=== PATIENT | male | born 1955 | race African-American/Black ===

== ENCOUNTER 2016-07-21 08:51 | Day surgery (SDC) | payer OTHER ==
[~2016-07-21] VITALS: Ht 188 cm; Wt 129.0 kg
[~2016-07-21 08:51] MED LIST: BACITRACIN 50,000 UNIT ONE; BUPIVACAINE/PF-EPI 0.5% 1:200K ONE; HEPARIN 1,000 UNITS/ML, 10ML ONE; HEPARIN 5,000 UNITS/ML, 1ML ONE; PAPAVERINE 30 MG/ML, 2ML ONE; PROTAMINE SULFATE 10 MG/ML, 5ML ONE; THROMBIN 20,000 UNIT VIAL TP ONE
[2016-07-21 09:17] VITALS: BP 168/98
[2016-07-21] MEDS ORDERED: SODIUM CHLORIDE 0.9% 1,000 ML IV SCH (09:18)
[2016-07-21] MEDS ORDERED: MIDAZOLAM 1 MG/ML, 2ML ONE (09:35)
[2016-07-21] MEDS ORDERED: FENTANYL PF 250 MCG/5ML ONE (09:35)
[2016-07-21] MEDS ORDERED: VICTOZA (10:26)
[2016-07-21] MEDS ORDERED: ERGO500017 PO (10:26)
[2016-07-21] MEDS ORDERED: ASPI-650 PO (10:26)
[2016-07-21] MEDS ORDERED: HUMALOG (10:26)
[2016-07-21] MEDS ORDERED: ALLO300T PO (10:26)
[2016-07-21] MEDS ORDERED: CHOL10003 PO (10:26)
[2016-07-21] MEDS ORDERED: METO50TA82 PO (10:26)
[2016-07-21] MEDS ORDERED: EVOL140P SC (10:26)
[2016-07-21] MEDS ORDERED: AMLO-282 PO (10:26)
[2016-07-21 10:30] LABS: HEMOGLOBIN 13.3 g/dL (13.7-18.0)
[2016-07-21] MEDS ORDERED: ONDANSETRON 2MG/ML, 2ML IVPush PRN (10:30)
[2016-07-21] MEDS ORDERED: HYDROmorphone 1 MG/ML, 1ML IV PRN (10:30)
[2016-07-21] MEDS ORDERED: OXYcodone 5 MG/5 ML ORAL.SOL UDC PO PRN (10:30)
[2016-07-21] MEDS ORDERED: LABETALOL 5MG/ML, 20ML IV PRN (10:30)
[2016-07-21] MEDS ORDERED: MEPERIDINE/PF 25MG/0.5ML IVPush PRN (10:30)
[2016-07-21] MEDS ORDERED: hydrALAzine 20 MG/ML, 1ML IV PRN (10:30)
[2016-07-21] MEDS ORDERED: FENTANYL PF 100 MCG/2ML IV PRN (10:30)
[2016-07-21 10:38] LABS: BLOOD UREA NITROGEN 52 mg/dL (7-18)
[2016-07-21] MEDS ORDERED: ONDANSETRON 2MG/ML, 2ML ONE (10:45)
[2016-07-21] MEDS ORDERED: CEFAZOLIN 1,000 MG ONE (10:45)
[2016-07-21] MEDS ORDERED: PROPOFOL 10 MG/ML, 20ML ONE (10:45)
[2016-07-21] MEDS: PROMETHAZINE 25 MG/ML, 1ML IV PRN ×2 (12:07→13:08)
[2016-07-21] MEDS ORDERED: OXYcodone 5 MG/5 ML ORAL.SOL UDC ONE (12:32)
[2016-07-21] MEDS ORDERED: hydrALAzine 20 MG/ML, 1ML ONE (12:32)
[2016-07-21] MEDS ORDERED: PROMETHAZINE 25 MG/ML, 1ML ONE (12:56)
== END 2016-07-21 14:25 | disposition home or self-care (01) ==
LOC: OUT 08:51
PROVIDERS: ATTEND Surgery Vascular Surgery
DX: E11.22 Type 2 diabetes mellitus with diabetic chronic kidney disease (principal); I12.9 Hypertensive chronic kidney disease with stage 1 through stage 4 chronic kidney disease, or unspecified chronic kidney disease; N18.4 Chronic kidney disease, stage 4 (severe)
CPT/HCPCS: 36415; 36821; 80048; 82962; 85025; 93005; C1760; J0360; J0690; J1644; J2250; J2405; J2440; J2550; J2704; J2720; J3010; J7030

== ENCOUNTER → 2016-12-03 | Outpatient (CLI) | payer OTHER ==
[~2016-12-03] MED LIST changes: +ALLO300T PO; +AMLO-282 PO; +ASPI-650 PO; -BACITRACIN 50,000 UNIT ONE; -BUPIVACAINE/PF-EPI 0.5% 1:200K ONE; +CHOL10003 PO; +ERGO500017 PO; +EVOL140P SC; -HEPARIN 1,000 UNITS/ML, 10ML ONE; -HEPARIN 5,000 UNITS/ML, 1ML ONE; +HUMALOG; +METO50TA82 PO; -PAPAVERINE 30 MG/ML, 2ML ONE; -PROTAMINE SULFATE 10 MG/ML, 5ML ONE; -THROMBIN 20,000 UNIT VIAL TP ONE; +VICTOZA
[2016-12-03 13:01] LABS: BLOOD UREA NITROGEN 62 mg/dL (7-18)
== END | disposition home or self-care (01) ==
LOC: CFH 09:29
PROVIDERS: ATTEND Internal Medicine Nephrology
DX: N18.5 Chronic kidney disease, stage 5 (principal)
CPT/HCPCS: 36415; 80069

== ENCOUNTER → 2017-01-06 | Outpatient (CLI) | payer OTHER | END | disposition home or self-care (01) | LOC: CFH 13:12 | PROVIDERS: ATTEND Internal Medicine Nephrology | DX: I12.0 Hypertensive chronic kidney disease with stage 5 chronic kidney disease or end stage renal disease (principal); E11.22 Type 2 diabetes mellitus with diabetic chronic kidney disease; N18.5 Chronic kidney disease, stage 5; R80.9 Proteinuria, unspecified; M10.9 Gout, unspecified; E29.1 Testicular hypofunction | CPT/HCPCS: 36415; 80074; 86480 ==

== ENCOUNTER → 2017-01-13 | Outpatient (CLI) | payer OTHER ==
[2017-01-13 12:50] LABS: HEMATOCRIT 38.6 % (39.2-51.8); HEMOGLOBIN 12.7 g/dL (13.7-18.0); WHITE BLOOD COUNT 6.9 x10^3/uL (3.4-10)
[2017-01-13 12:51] LABS: PATH.CAST-FLAG NOT PRESENT; SPERM-FLAG NOT PRESENT; SRC-FLAG NOT PRESENT; XTAL-FLAG NOT PRESENT; YLC-FLAG NOT PRESENT
[2017-01-13 12:59] LABS: BLOOD UREA NITROGEN 76 mg/dL (7-18)
[2017-01-13 13:02] LABS: ASPARTATE AMINO TRANSFERASE 33 U/L (15-37)
== END | disposition home or self-care (01) ==
LOC: CFH 08:27
PROVIDERS: ATTEND Internal Medicine Nephrology
DX: I12.9 Hypertensive chronic kidney disease with stage 1 through stage 4 chronic kidney disease, or unspecified chronic kidney disease (principal); E11.22 Type 2 diabetes mellitus with diabetic chronic kidney disease; N18.5 Chronic kidney disease, stage 5; R80.9 Proteinuria, unspecified; M10.9 Gout, unspecified; E29.1 Testicular hypofunction
CPT/HCPCS: 36415; 80053; 81001; 82306; 82570; 83735; 84100; 84156; 84550; 85025

== ENCOUNTER 2017-05-14 08:46 | Day surgery (SDC) | payer OTHER ==
[~2017-05-14] VITALS: Ht 188 cm; Wt 125.9 kg
[~2017-05-14 08:46] MED LIST changes: -AMLO-282 PO; +AMLO1TAB99 PO
[2017-05-14] MEDS ORDERED: METO50TA82 PO (09:34)
[2017-05-14] MEDS ORDERED: LISI-167 PO (09:34)
[2017-05-14] MEDS ORDERED: ASPI-496 PO (09:34)
[2017-05-14] MEDS ORDERED: CHOL200074 PO (09:34)
[2017-05-14] MEDS ORDERED: AMLO1CAP15 PO (09:34)
[2017-05-14] MEDS ORDERED: LIRA0.6P2 SQ (09:34)
[2017-05-14] MEDS ORDERED: [UNRECOGNIZED DRUG - OTHER] (09:34)
[2017-05-14] MEDS ORDERED: CALC0.5C9 PO (09:34)
[2017-05-14] MEDS ORDERED: ALPH200C PO (09:34)
[2017-05-14] MEDS ORDERED: TURM500C4 PO (09:34)
[2017-05-14] MEDS ORDERED: SODI650T PO (09:34)
[2017-05-14] MEDS ORDERED: ALLO300T PO (09:34)
[2017-05-14] MEDS ORDERED: SODIUM CHLORIDE 0.9% 1,000 ML IV SCH (09:34)
[2017-05-14] MEDS ORDERED: FURO40TA6 PO (09:34)
[2017-05-14 09:35] VITALS: BP 163/98
[2017-05-14] MEDS ORDERED: MIDAZOLAM 1 MG/ML, 2ML ONE (09:57)
[2017-05-14] MEDS ORDERED: FENTANYL PF 250 MCG/5ML ONE (09:58)
[2017-05-14] MEDS ORDERED: PROPOFOL 10 MG/ML, 20ML ONE (10:00)
[2017-05-14] MEDS ORDERED: SODIUM CHLORIDE 0.9% PF 10ML ONE (10:01)
[2017-05-14] MEDS ORDERED: CEFAZOLIN 1,000 MG ONE ×3 (10:01→11:07)
[2017-05-14] MEDS ORDERED: NEOSTIGMINE 1 MG/ML, 10ML ONE (10:01)
[2017-05-14] MEDS ORDERED: ROCURONIUM 10 MG/ML,10ML ONE (10:01)
[2017-05-14] MEDS ORDERED: GLYCOPYRROLATE 0.4 MG/2 ML, 2ML ONE (10:01)
[2017-05-14] MEDS ORDERED: BUPIVACAINE/PF 0.5% ONE (10:04)
[2017-05-14] MEDS ORDERED: ONDANSETRON 2MG/ML, 2ML ONE (10:27)
[2017-05-14] MEDS ORDERED: HYDROmorphone 1 MG/ML, 1ML IV PRN (10:30)
[2017-05-14] MEDS ORDERED: LABETALOL 5MG/ML, 20ML IV PRN (10:30)
[2017-05-14] MEDS ORDERED: FENTANYL PF 100 MCG/2ML IV PRN (10:30)
[2017-05-14] MEDS ORDERED: hydrALAzine 20 MG/ML, 1ML IV PRN (10:30)
[2017-05-14] MEDS ORDERED: PROMETHAZINE 25 MG/ML, 1ML IV PRN (10:30)
[2017-05-14] MEDS ORDERED: ONDANSETRON 2MG/ML, 2ML IVPush PRN (10:30)
[2017-05-14] MEDS ORDERED: OXYcodone 5 MG/5 ML ORAL.SOL UDC PO PRN (10:30)
[2017-05-14] MEDS ORDERED: HEPARIN 1,000 UNITS/ML, 10ML ONE (11:13)
[2017-05-14] MEDS ORDERED: ACETAMINOPHEN 650 MG/20.3 ML UDC ONE (11:29)
[2017-05-14] MEDS ORDERED: OXYcodone 5 MG/5 ML ORAL.SOL UDC ONE ×2 (11:29→11:53)
== END 2017-05-14 14:45 | disposition home or self-care (01) ==
LOC: OUT 08:46
PROVIDERS: ATTEND Surgery Vascular Surgery
DX: I12.0 Hypertensive chronic kidney disease with stage 5 chronic kidney disease or end stage renal disease (principal); E11.22 Type 2 diabetes mellitus with diabetic chronic kidney disease; N18.6 End stage renal disease; Z99.2 Dependence on renal dialysis; Z88.6 Allergy status to analgesic agent; Z79.899 Other long term (current) drug therapy; Z79.82 Long term (current) use of aspirin
CPT/HCPCS: 36415; 49324; 80047; C1750; J0690; J1644; J2250; J2405; J2704; J2710; J3010; J3490

== ENCOUNTER → 2017-06-02 | Outpatient (CLI) | payer OTHER ==
[~2017-06-02] MED LIST changes: +ALPH200C PO; +AMLO1CAP15 PO; +ASPI-496 PO; +CALC0.5C9 PO; +CHOL200074 PO; +FURO40TA6 PO; +LIRA0.6P2 SQ; +LISI-167 PO; +SODI650T PO; +TURM500C4 PO; +[UNRECOGNIZED DRUG - OTHER]
== END | disposition home or self-care (01) ==
LOC: LAB 12:45
PROVIDERS: ATTEND Internal Medicine Nephrology
DX: I12.0 Hypertensive chronic kidney disease with stage 5 chronic kidney disease or end stage renal disease (principal); E11.22 Type 2 diabetes mellitus with diabetic chronic kidney disease; N18.5 Chronic kidney disease, stage 5; R80.9 Proteinuria, unspecified; E29.1 Testicular hypofunction; M10.9 Gout, unspecified
CPT/HCPCS: 36415; 86480

== ENCOUNTER 2017-10-26 14:27 | Emergency (ER) | payer MEDICARE, OTHER ==
[~2017-10-26] VITALS: Ht 188 cm; Wt 123.3 kg
[2017-10-26] MEDS ORDERED: CHOL2000 PO (15:04)
[2017-10-26 15:06] LABS: BASOPHILS # (AUTO) 0.04 x10^3/uL (0-0.1); BASOPHILS % (AUTO) 1 % (0-1); EOSINOPHILS # (AUTO) 0.16 x10^3/uL (0-0.4); EOSINOPHILS % (AUTO) 2 % (1-7); LYMPHOCYTES # (AUTO) 2.67 x10^3/uL (1-3.4); LYMPHOCYTES % (AUTO) 35 % (22-44); MD NO; MEAN CORPUSCULAR HEMOGLOBIN 29.8 pg (27.5-34.5); MEAN CORPUSCULAR HGB CONC 32.7 g/dL (33.2-36.2); MEAN CORPUSCULAR VOLUME 91.2 fL (81-97); MEAN PLATELET VOLUME 7.7 fL (7.4-10.4); MONOCYTES # (AUTO) 0.61 x10^3/uL (0.2-0.8); MONOCYTES % (AUTO) 8 % (2-9); NEUTROPHILS # (AUTO) 4.25 x10^3/uL (1.8-6.8); NEUTROPHILS % (AUTO) 55 % (42-75); PLATELET COUNT 261 x10^3/uL (130-400); RED BLOOD COUNT 4.14 x10^6/uL (4.38-5.82); RED CELL DISTRIBUTION WIDTH 16.2 % (9.4-14.8)
[2017-10-26] MEDS ORDERED: EVOL140P INJ (15:06)
[2017-10-26 15:18] LABS: ALANINE AMINOTRANSFERASE 21 U/L (12-78); ANION GAP 13 mmol/L (5-15); CALCIUM 10.6 mg/dL (8.5-10.1); CHLORIDE 103 mmol/L (98-107)
[2017-10-26 15:22] LABS: ALKALINE PHOSPHATASE 45 U/L (45-117); BILIRUBIN,TOTAL 0.3 mg/dL (0.2-1.0); TROPONIN I < 0.015 ng/mL (0.000-0.045)
[2017-10-26] MEDS ORDERED: ASCO-96 PO (16:04)
[2017-10-26] MEDS ORDERED: IRON15TA3 PO (16:05)
[2017-10-26 17:20] VITALS: BP 174/98
== END 2017-10-26 17:53 | disposition home or self-care (01) ==
LOC: ED 17:14
DX: S39.012A Strain of muscle, fascia and tendon of lower back, initial encounter (principal); R55 Syncope and collapse; R06.02 Shortness of breath; R61 Generalized hyperhidrosis; I10 Essential (primary) hypertension; E11.9 Type 2 diabetes mellitus without complications; Z94.0 Kidney transplant status; X58.XXXA Exposure to other specified factors, initial encounter; Y93.01 Activity, walking, marching and hiking; Y92.89 Other specified places as the place of occurrence of the external cause; Y99.8 Other external cause status
CPT/HCPCS: 36415; 71045; 74176; 80053; 84484; 85025; 93005; 99285

== ENCOUNTER → 2017-11-06 | Outpatient (CLI) | payer MEDICARE, OTHER ==
[~2017-11-06] MED LIST changes: +ASCO-96 PO; +CHOL2000 PO; +EVOL140P INJ; +IRON15TA3 PO
== END | disposition home or self-care (01) ==
LOC: CFH 11:15
PROVIDERS: ATTEND Family Medicine
DX: R76.11 Nonspecific reaction to tuberculin skin test without active tuberculosis (principal)
CPT/HCPCS: 36415; 86480

== ENCOUNTER → 2018-03-11 | Outpatient (CLI) | payer MEDICARE, OTHER | END | disposition home or self-care (01) | LOC: CFH 12:52 | PROVIDERS: ATTEND Orthopaedic Surgery | DX: M47.896 Other spondylosis, lumbar region (principal); M41.86 Other forms of scoliosis, lumbar region; E11.9 Type 2 diabetes mellitus without complications | CPT/HCPCS: 72110 ==

== ENCOUNTER 2018-04-13 08:09 | Day surgery (SDC) | payer MEDICARE, OTHER ==
[~2018-04-13] VITALS: Ht 188 cm; Wt 121.0 kg
[2018-04-13 08:46] VITALS: BP 169/93
[2018-04-13] MEDS ORDERED: FOLI0.8T22 PO (08:58)
[2018-04-13] MEDS ORDERED: METH750T87 PO (08:58)
[2018-04-13] MEDS ORDERED: MIDAZOLAM 1 MG/ML, 5ML ONE (09:43)
[2018-04-13] MEDS ORDERED: FENTANYL PF 100 MCG/2ML ONE (09:43)
[2018-04-13] MEDS ORDERED: NALOXONE 1 MG/ML, 2ML ONE (09:44)
[2018-04-13] MEDS ORDERED: FLUMAZENIL 0.1 MG/1 ML, 5ML ONE (09:44)
[2018-04-13] MEDS ORDERED: LIDOCAINE-MPF 1%, 5ML ONE (09:56)
== END 2018-04-13 11:45 | disposition home or self-care (01) ==
LOC: OUT 08:09 → EDSTATUS 10:00 → OUT 11:45
PROVIDERS: ATTEND Physician Assistant Surgical
DX: M46.46 Discitis, unspecified, lumbar region (principal); M51.16 Intervertebral disc disorders with radiculopathy, lumbar region; M48.062 Spinal stenosis, lumbar region with neurogenic claudication; M54.40 Lumbago with sciatica, unspecified side; M43.10 Spondylolisthesis, site unspecified; E11.9 Type 2 diabetes mellitus without complications; M10.9 Gout, unspecified; I10 Essential (primary) hypertension; Z90.49 Acquired absence of other specified parts of digestive tract; Z98.890 Other specified postprocedural states; Z79.899 Other long term (current) drug therapy; Z88.6 Allergy status to analgesic agent; Z88.8 Allergy status to other drugs, medicaments and biological substances; Z87.39 Personal history of other diseases of the musculoskeletal system and connective tissue
CPT/HCPCS: 10022; 77012; 87015; 87070; 87075; 87102; 87116; 87176; 87205; 87206; 99156; J2250; J3010; 99157; J2310

== ENCOUNTER 2019-06-17 16:37 | Inpatient (IN) | payer OTHER, MEDICARE ==
[~2019-06-17] VITALS: Ht 188 cm; Wt 109.8 kg
[~2019-06-17 16:37] MED LIST changes: -AMLO1CAP15 PO; +AMLO1CAP54 PO; -EVOL140P INJ; -EVOL140P SC; +EVOL140P3 INJ; +EVOL140P3 SC; +FOLI0.8T22 PO; +METH750T87 PO
--- NOTE | 2019-06-17 17:15 | NUR ---
TO ROOM FROM LOBBY. NAD.
[2019-06-17 17:35] LABS: BASOPHILS % (AUTO) 0 % (0-1); EOSINOPHILS % (AUTO) 0 % (1-7); LYMPHOCYTES # (AUTO) 0.04 x10^3/uL (1-3.4); LYMPHOCYTES % (AUTO) 1 % (22-44); MEAN CORPUSCULAR HEMOGLOBIN 28.3 pg (27.5-34.5); MEAN CORPUSCULAR HGB CONC 32.1 g/dL (33.2-36.2); MEAN CORPUSCULAR VOLUME 88.4 fL (81-97); MEAN PLATELET VOLUME 8.6 fL (7.4-10.4); MONOCYTES # (AUTO) 0.05 x10^3/uL (0.2-0.8); MONOCYTES % (AUTO) 1 % (2-9); NEUTROPHILS # (AUTO) 3.88 x10^3/uL (1.8-6.8); NEUTROPHILS % (AUTO) 98 % (42-75); PLATELET COUNT 209 x10^3/uL (130-400); RED BLOOD COUNT 4.49 x10^6/uL (4.38-5.82)
[2019-06-17 17:36] LABS: MD NO
[2019-06-17 17:38] LABS: ALANINE AMINOTRANSFERASE 40 U/L (12-78); ALBUMIN 3.2 g/dL (3.4-5.0); ANION GAP 6 mmol/L (5-15); CHLORIDE 112 mmol/L (98-107); CREATININE 2.98 mg/dL (0.7-1.3)
[2019-06-17 17:40] LABS: ALKALINE PHOSPHATASE 97 U/L (45-117); BILIRUBIN,TOTAL 0.4 mg/dL (0.2-1.0); TOTAL PROTEIN 8.6 g/dL (6.4-8.2)
[2019-06-17] MEDS ORDERED: SODIUM CHLORIDE FLUSH 10ML SYR IVF ONE (18:00)
[2019-06-17] MEDS ORDERED: SODIUM CHLORIDE 0.9% 1,000ML IVBOLUS ONE ×2 (18:00→19:30)
--- NOTE | 2019-06-17 18:42 | NUR ---
PIV PLACED AND LABS DRAWN BY TASK RN. PT ATTEMPTED, BUT UNABLE TO PROVIDE STOOL SAMPLE AT THIS TIME. PT RESTING COMFORTABLY ON [facility]. BG.
--- NOTE | 2019-06-17 19:41 | NUR ---
2ND LITER IVF RUNNING PER JUN. PT RESTING ON [facility]. BG. FAMILY AT BEDSIDE.
--- NOTE | 2019-06-17 20:13 | NUR ---
RECEIVED MEDS FROM PHARMACY. MEDS ADMIN PER JUN. PT RESTING COMFORTABLY ON [facility]. BG.
[2019-06-17] MEDS ORDERED: SODIUM BICARB 8.4%,50ML SYR. 150 MEQ in DEXTROSE 5% 1,000 ML IV SCH (20:15)
[2019-06-17] MEDS ORDERED: GLIP5TAB10 PO (20:25)
[2019-06-17] MEDS ORDERED: AMLO10TA8 PO (20:25)
[2019-06-17] MEDS ORDERED: MYCO360T PO (20:25)
[2019-06-17] MEDS ORDERED: ATOR10TA9 PO (20:25)
[2019-06-17] MEDS ORDERED: CARV12.52 PO (20:25)
[2019-06-17] MEDS ORDERED: ALLO300T PO (20:25)
[2019-06-17] MEDS ORDERED: FAMO20TA7 PO (20:25)
[2019-06-17] MEDS ORDERED: TACR4TAB PO (20:25)
[2019-06-17] MEDS ORDERED: LIRA0.6P SC (20:25)
[2019-06-17] MEDS ORDERED: APIX5TAB PO (20:25)
[2019-06-17] MEDS ORDERED: INSU100I13 SC (20:25)
[2019-06-17] MEDS ORDERED: SODIUM CHLORIDE 0.9% 1,000 ML IV ONE (20:39)
[2019-06-17] MEDS ORDERED: SODIUM CHLORIDE FLUSH 10ML SYR IVF PRN (21:00)
--- NOTE | 2019-06-17 21:29 | NUR ---
REPORT GIVEN TO ELIZA MATTHEWS
[2019-06-17] MEDS ORDERED: mycophenOLATE SODIUM 360MG DR PO SCH (21:30)
[2019-06-17] MEDS ORDERED: LISINOPRIL 10 MG TABLET PO SCH (21:30)
[2019-06-17] MEDS ORDERED: LABETALOL 5MG/ML, 20ML IVPush PRN (21:30)
[2019-06-17] MEDS ORDERED: ENALAPRILAT 1.25 MG/ML, 2ML IVPush PRN (21:30)
[2019-06-17] MEDS ORDERED: ACETAMINOPHEN 325 MG TABLET PO PRN (21:30)
[2019-06-17] MEDS ORDERED: ONDANSETRON 2MG/ML, 2ML IVPush PRN (21:30)
[2019-06-17] MEDS ORDERED: HEPARIN 5,000 UNITS/ML, 1ML SQ SCH (21:30)
[2019-06-17] MEDS ORDERED: ONDANSETRON ODT 4 MG PO PRN (21:30)
[2019-06-17] MEDS: SODIUM BICARBONATE 8.4% 150 MEQ in DEXTROSE 5% 1,000 ML IV SCH (22:00)
[2019-06-17] MEDS ORDERED: DEXTROSE 4 GM TAB.CHEW PO PRN (22:30)
[2019-06-17] MEDS ORDERED: DEXTROSE 50%, 50ML SYRINGE IVPush PRN (22:30)
[2019-06-17] MEDS ORDERED: GLUCAGON 1 MG IM PRN (22:30)
--- NOTE | 2019-06-17 22:36 | NUR ---
REPORT GIVEN TO FELTON MATTHEWS.
[2019-06-17 23:00] VITALS: BP 128/84
[2019-06-17 23:18] LABS: CHLORIDE,URINE RANDOM 81 mmol/L; POTASSIUM,URINE RANDOM 4 mmol/L; SODIUM,URINE RANDOM 72 mmol/L; TOTAL PROTEIN,URINE RANDOM 43 mg/dL (0-12)
[2019-06-17] MEDS: INSULIN GLARGINE 100 UNITS/ML, PEN SQ-INSULIN SCH (23:30)
[2019-06-18 01:50] VITALS: BP 121/66
[2019-06-18 03:59] LABS: CLOSTRIDIUM DIFFICILE ANTIGEN NEGATIVE; CLOSTRIDIUM DIFFICILE TOXIN NEGATIVE (Negative)
[2019-06-18] MEDS: SODIUM BICARBONATE 8.4% 150 MEQ in DEXTROSE 5% 1,000 ML IV SCH (03:59)
[2019-06-18 06:32] LABS: ANION GAP 8 mmol/L (5-15); CALCIUM 8.2 mg/dL (8.5-10.1); CHLORIDE 111 mmol/L (98-107); CREATININE 2.59 mg/dL (0.7-1.3)
[2019-06-18 07:18] VITALS: BP 124/74
[2019-06-18] MEDS ORDERED: FERROUS SULFATE 325 MG TABLET PO SCH (08:00)
[2019-06-18] MEDS ORDERED: FUROSEMIDE 40 MG TABLET PO SCH (09:00)
[2019-06-18] MEDS ORDERED: CALCITRIOL 0.5 MCG CAPSULE PO SCH (09:00)
[2019-06-18] MEDS ORDERED: [UNRECOGNIZED DRUG - OTHER] PO SCH (09:00)
[2019-06-18] MEDS ORDERED: METOPROLOL TARTRATE 50 MG TAB PO SCH (09:00)
[2019-06-18] MEDS ORDERED: TEMPLATE NON-FORMULARY MED. (Alpha Lipoic Acid** 200 MG) PO SCH (09:00)
[2019-06-18] MEDS: CARVEDILOL 12.5 MG TABLET PO SCH ×2 (09:00→21:01)
[2019-06-18] MEDS: ALLOPURINOL 300 MG TABLET PO SCH (09:00)
[2019-06-18] MEDS ORDERED: ASCORBIC ACID 500 MG TABLET PO SCH (09:00)
[2019-06-18] MEDS ORDERED: AMLODIPINE BESYLATE PO SCH (09:00)
[2019-06-18] MEDS ORDERED: METHOCARBAMOL 750 MG TABLET PO SCH (09:00)
[2019-06-18] MEDS: APIXABAN 5 MG TABLET PO SCH ×2 (09:00→21:00)
[2019-06-18] MEDS ORDERED: TACROLIMUS 4 MG PO SCH (09:00)
[2019-06-18] MEDS ORDERED: BENAZEPRIL PO SCH (09:00)
[2019-06-18] MEDS: MULTIVITS,STRESS FORMULA 1 TABLET PO SCH (09:00)
[2019-06-18] MEDS ORDERED: ASPIRIN 81 MG TABLET EC PO SCH (09:00)
[2019-06-18] MEDS ORDERED: LACTATED RINGERS 1,000 ML IV SCH (11:00)
[2019-06-18] MEDS: SODIUM CHLORIDE FLUSH 10ML SYR IVF SCH ×2 (11:06→21:01)
[2019-06-18] MEDS: AMLODIPINE 10 MG TAB PO SCH (12:30)
[2019-06-18] MEDS: LACTATED RINGERS 1,000 ML IV SCH ×2 (12:30→19:49)
[2019-06-18 12:47] LABS: MICROSCOPIC NOT IND
[2019-06-18 13:00] LABS: CREATININE,URINE RANDOM 74.7 mg/dL
[2019-06-18 13:28] VITALS: BP 109/71
[2019-06-18] MEDS ORDERED: LOPERAMIDE 2 MG CAPSULE PO ONE (19:00)
[2019-06-18] MEDS: VALGANCICLOVIR 450MG TABLET PO SCH (21:00)
[2019-06-18] MEDS: mycophenOLATE SODIUM 360MG DR PO SCH (21:00)
[2019-06-18] MEDS ORDERED: FAMOTIDINE 20 MG TABLET PO SCH (21:00)
[2019-06-18] MEDS ORDERED: ATORVASTATIN 10 MG TABLET PO SCH (21:00)
[2019-06-18] MEDS: INSULIN GLARGINE 100 UNITS/ML, PEN SQ-INSULIN SCH (21:00)
[2019-06-18 21:06] VITALS: BP 105/66
[2019-06-18] MEDS: LOPERAMIDE 2 MG CAPSULE PO PRN (21:14)
[2019-06-18] MEDS ORDERED: CHOLESTYRAMINE LIGHT 4GM PACKET PO SCH (22:00)
[2019-06-19 02:12] VITALS: BP 118/67
[2019-06-19] MEDS: LOPERAMIDE 2 MG CAPSULE PO PRN ×2 (02:27→05:36)
[2019-06-19] MEDS: LACTATED RINGERS 1,000 ML IV SCH ×2 (03:31→11:17)
[2019-06-19 06:50] LABS: ALBUMIN 2.5 g/dL (3.4-5.0); ANION GAP 8 mmol/L (5-15); CHLORIDE 115 mmol/L (98-107); CREATININE 2.27 mg/dL (0.7-1.3)
[2019-06-19 07:18] VITALS: BP 129/72
[2019-06-19] MEDS ORDERED: TACROLIMUS 5 MG HOMEMEDPO SCH (09:00)
[2019-06-19] MEDS ORDERED: SULFAMETH./TRIMETHOPRIM SS 400MG/80MG TABLET PO SCH (09:00)
[2019-06-19] MEDS ORDERED: FLUCONAZOLE 50 MG TABLET PO SCH (09:00)
[2019-06-19] MEDS ORDERED: FLUCONAZOLE 100 MG TABLET ONE (09:12)
[2019-06-19] MEDS: mycophenOLATE SODIUM 360MG DR PO SCH (09:17)
[2019-06-19] MEDS: VALGANCICLOVIR 450MG TABLET PO SCH (09:17)
[2019-06-19] MEDS: MULTIVITS,STRESS FORMULA 1 TABLET PO SCH ×2 (09:17→09:48)
[2019-06-19] MEDS: AMLODIPINE 10 MG TAB PO SCH (09:18)
[2019-06-19] MEDS: CARVEDILOL 12.5 MG TABLET PO SCH (09:18)
[2019-06-19] MEDS: APIXABAN 5 MG TABLET PO SCH (09:18)
[2019-06-19] MEDS: SODIUM CHLORIDE FLUSH 10ML SYR IVF SCH (09:19)
[2019-06-19] MEDS: ALLOPURINOL 300 MG TABLET PO SCH (09:20)
[2019-06-19] MEDS ORDERED: AMLO10TA8 PO (12:57)
[2019-06-19] MEDS ORDERED: PRED10TA PO (12:57)
[2019-06-19] MEDS ORDERED: MYCO360T PO (12:57)
[2019-06-19] MEDS ORDERED: FLUC50TA PO (12:57)
[2019-06-19] MEDS ORDERED: LOPE2CAP PO (12:57)
[2019-06-19] MEDS ORDERED: SODI650T PO (12:57)
[2019-06-19] MEDS ORDERED: SULF-16 PO (12:57)
[2019-06-19] MEDS ORDERED: CHOL239. PO (12:57)
[2019-06-19] MEDS ORDERED: VALG450T PO (12:57)
[2019-06-19] MEDS ORDERED: POTASSIUM CHLORIDE 20 MEQ TAB.ER.PRT PO ONE (13:00)
[2019-06-21] MEDS ORDERED: ERGOCALCIFEROL 50,000 UNIT CAPSULE PO SCH (09:00)
== END 2019-06-19 16:04 | disposition home or self-care (01) | DRG 699 ==
LOC: ED 19:27 → EDIP 20:56 → 3N 22:48 → 4WST 06-18 01:12
PROVIDERS: ADMIT Family Medicine; ATTEND Family Medicine
DX: T86.11 Kidney transplant rejection (principal); E87.2 Acidosis; I12.0 Hypertensive chronic kidney disease with stage 5 chronic kidney disease or end stage renal disease; N17.9 Acute kidney failure, unspecified; D64.9 Anemia, unspecified; E11.22 Type 2 diabetes mellitus with diabetic chronic kidney disease; E78.5 Hyperlipidemia, unspecified; E86.0 Dehydration; E87.6 Hypokalemia; Y83.0 Surgical operation with transplant of whole organ as the cause of abnormal reaction of the patient, or of later complication, without mention of misadventure at the time of the procedure; Y92.89 Other specified places as the place of occurrence of the external cause; Z88.5 Allergy status to narcotic agent
CPT/HCPCS: 36415; 80048; 80053; 80069; 81003; 82436; 82570; 82962; 83036; 84133; 84156; 84300; 85025; 87324; 87496; 89055; G0378; J7070; J7518; J7030; J7120; J7512

== ENCOUNTER 2019-10-04 02:27 | Inpatient (IN) | payer OTHER, MEDICARE ==
[~2019-10-04] VITALS: Ht 188 cm; Wt 103.8 kg
[~2019-10-04 02:27] MED LIST changes: +AMLO10TA8 PO; +APIX5TAB PO; +ATOR10TA9 PO; +CARV12.52 PO; +CHOL239. PO; +FAMO20TA7 PO; +FLUC50TA PO; +GLIP5TAB10 PO; +INSU100I13 SC; +LIRA0.6P SC; +LOPE2CAP PO; +MYCO360T PO; +PRED10TA PO; +SULF-16 PO; +TACR4TAB PO; +VALG450T PO
--- NOTE | 2019-10-04 02:48 | NUR ---
KIDNEY TRANSPLANT 10/06/18. STARTED WITH FEVER LAST NIGHT AROUND 2300. REPORTS SOME SHORTNESS OF BREATH. NO COUGH OR SORE THROAT. DYSURIA STARTED THIS WEEK. DENIES ABDOMINAL PAIN OR VOMITING. DENIES SICK CONTACTS OR NO KNOWN COVID EXPOSURE.
[2019-10-04 03:13] LABS: MEAN CORPUSCULAR HEMOGLOBIN 28.9 pg (27.5-34.5); MEAN CORPUSCULAR HGB CONC 31.7 g/dL (33.2-36.2); MEAN CORPUSCULAR VOLUME 91.2 fL (81-97); MEAN PLATELET VOLUME 8.7 fL (7.4-10.4); PLATELET COUNT 110 x10^3/uL (130-400); RED BLOOD COUNT 4.81 x10^6/uL (4.38-5.82); RED CELL DISTRIBUTION WIDTH 17.3 % (9.4-14.8)
[2019-10-04 03:24] LABS: ALBUMIN 2.8 g/dL (3.4-5.0); ANION GAP 6 mmol/L (5-15); CHLORIDE 107 mmol/L (98-107); CREATININE 1.95 mg/dL (0.7-1.3)
--- NOTE | 2019-10-04 03:25 | NUR ---
LABS DRAWN AND UA SENT. AWAITING RESULTS.
[2019-10-04 03:38] LABS: MICROSCOPIC AUTO
[2019-10-04 03:41] LABS: BASOPHILS # (AUTO) 0.01 x10^3/uL (0-0.1); BASOPHILS % (AUTO) 0 % (0-1); EOSINOPHILS # (AUTO) 0.02 x10^3/uL (0-0.4); EOSINOPHILS % (AUTO) 1 % (1-7); LYMPHOCYTES # (AUTO) 0.17 x10^3/uL (1-3.4); LYMPHOCYTES % (AUTO) 6 % (22-44); MD SCAN; MONOCYTES # (AUTO) 0.48 x10^3/uL (0.2-0.8); MONOCYTES % (AUTO) 15 % (2-9); NEUTROPHILS # (AUTO) 2.43 x10^3/uL (1.8-6.8); NEUTROPHILS % (AUTO) 78 % (42-75)
[2019-10-04] MEDS ORDERED: CEFTRIAXONE PMX 1GM/50ML 50 ML ONE (04:08)
[2019-10-04] MEDS ORDERED: AMLO-150 PO (04:17)
[2019-10-04] MEDS ORDERED: ERGO500017 PO (04:18)
[2019-10-04] MEDS ORDERED: FILG300S2 SC (04:21)
[2019-10-04] MEDS ORDERED: VALG450T PO (04:28)
[2019-10-04] MEDS ORDERED: MYCO360T PO (04:28)
[2019-10-04] MEDS ORDERED: TACR1TAB PO (04:28)
[2019-10-04] MEDS ORDERED: TACR0.75 PO (04:28)
[2019-10-04] MEDS ORDERED: EVER1TAB PO (04:28)
[2019-10-04] MEDS ORDERED: SEMA0.25 SC (04:28)
[2019-10-04] MEDS ORDERED: SODIUM CHLORIDE 0.9% 1,000ML IVBOLUS ONE (04:30)
[2019-10-04] MEDS ORDERED: CEFTRIAXONE PMX 1GM/50ML 50 ML IV ONE (04:30)
[2019-10-04] MEDS: SODIUM CHLORIDE 0.9% 1,000 ML IV SCH ×3 (05:29→23:01)
[2019-10-04] MEDS ORDERED: OXYcodone/APAP 5/325MG TABLET PO PRN (05:30)
[2019-10-04] MEDS ORDERED: LOPERAMIDE 2 MG CAPSULE PO PRN (05:30)
[2019-10-04] MEDS ORDERED: DOCUSATE 100 MG CAPSULE PO PRN (05:30)
[2019-10-04] MEDS ORDERED: LABETALOL 5MG/ML, 20ML IVPush PRN (05:30)
[2019-10-04] MEDS ORDERED: DEXTROSE 4 GM TAB.CHEW PO PRN (05:30)
[2019-10-04] MEDS ORDERED: GLUCAGON 1 MG IM PRN (05:30)
[2019-10-04] MEDS ORDERED: ERGOCALCIFEROL 50,000 UNIT CAPSULE PO SCH ×2 (05:30→09:00)
[2019-10-04] MEDS ORDERED: ENALAPRILAT 1.25 MG/ML, 2ML IVPush PRN (05:30)
[2019-10-04] MEDS ORDERED: DEXTROSE 50%, 50ML SYRINGE IVPush PRN (05:30)
[2019-10-04 05:47] VITALS: BP 129/81
[2019-10-04] MEDS ORDERED: CEFTRIAXONE PMX 1GM/50ML 50 ML IV SCH (06:00)
[2019-10-04 06:58] VITALS: BP 152/86
[2019-10-04] MEDS: FILGRASTIM 300 MCG/ML SQ SCH ×2 (07:30→09:46)
[2019-10-04] MEDS: INSULIN LISPRO 100 UNITS/ML, PEN SQ-INSULIN SCH ×4 (08:33→20:41)
[2019-10-04] MEDS ORDERED: SODIUM BICARBONATE 650 MG TABLET PO SCH (09:00)
[2019-10-04] MEDS ORDERED: mycophenOLATE SODIUM 360MG DR PO SCH (09:00)
[2019-10-04] MEDS ORDERED: TACROLIMUS 0.5 MG CAPSULE PO SCH (09:00)
[2019-10-04] MEDS ORDERED: SEMAGLUTIDE 0.5 MG HOMEINJ SCH (09:00)
[2019-10-04] MEDS ORDERED: VALGANCICLOVIR 450MG TABLET PO SCH (09:00)
[2019-10-04] MEDS ORDERED: TACROLIMUS 1 MG CAPSULE PO SCH ×2 (09:00)
[2019-10-04] MEDS: ALLOPURINOL 300 MG TABLET PO SCH (09:36)
[2019-10-04] MEDS: AMLODIPINE 5 MG TABLET PO SCH (09:36)
[2019-10-04] MEDS: APIXABAN 5 MG TABLET PO SCH ×2 (09:36→20:41)
[2019-10-04] MEDS: CARVEDILOL 12.5 MG TABLET PO SCH ×2 (09:36→20:42)
[2019-10-04] MEDS: SODIUM CHLORIDE FLUSH 10ML SYR IVF SCH ×2 (09:41→20:42)
[2019-10-04] MEDS: SENNA/DOCUSATE TABLET PO SCH (09:41)
[2019-10-04] MEDS: VALGANCICLOVIR 450MG TABLET PO SCH ×2 (09:58→20:41)
[2019-10-04] MEDS: SODIUM BICARBONATE 650 MG TABLET PO SCH ×3 (10:30→19:22)
[2019-10-04] MEDS: EVEROLIMUS HOMEMEDPO SCH ×2 (11:33→19:22)
[2019-10-04 14:35] VITALS: BP 123/76
[2019-10-04 18:38] VITALS: BP 165/87
[2019-10-04] MEDS ORDERED: ATORVASTATIN 10 MG TABLET PO SCH (21:00)
[2019-10-05 02:00] VITALS: BP 159/81
[2019-10-05] MEDS: ACETAMINOPHEN 325 MG TABLET PO PRN (02:14)
[2019-10-05] MEDS ORDERED: VANCOMYCIN 1,900 MG in SODIUM CHLORIDE 0.9% 250 ML IV SCH (03:00)
[2019-10-05] MEDS ORDERED: PHARMACOKINETIC MONITORING MC PRN (03:00)
[2019-10-05] MEDS ORDERED: VANCOMYCIN PER PHARMACY MC PRN (03:00)
[2019-10-05] MEDS ORDERED: PHARMACOKINETIC CONSULTATION MC ONE (03:00)
[2019-10-05 04:20] LABS: ALANINE AMINOTRANSFERASE 33 U/L (12-78); ALBUMIN 2.3 g/dL (3.4-5.0); ANION GAP 9 mmol/L (5-15); CALCIUM 8.9 mg/dL (8.5-10.1); CHLORIDE 111 mmol/L (98-107)
[2019-10-05 04:23] LABS: ALKALINE PHOSPHATASE 92 U/L (45-117); BILIRUBIN,TOTAL 0.2 mg/dL (0.2-1.0); TOTAL PROTEIN 8.8 g/dL (6.4-8.2)
[2019-10-05 04:30] LABS: MEAN CORPUSCULAR HEMOGLOBIN 29.3 pg (27.5-34.5); MEAN CORPUSCULAR HGB CONC 31.9 g/dL (33.2-36.2); MEAN CORPUSCULAR VOLUME 91.8 fL (81-97); RED BLOOD COUNT 4.63 x10^6/uL (4.38-5.82); RED CELL DISTRIBUTION WIDTH 16.9 % (9.4-14.8)
[2019-10-05 04:45] LABS: MEAN PLATELET VOLUME 8.5 fL (7.4-10.4); PLATELET COUNT 77 x10^3/uL (130-400)
[2019-10-05 04:50] LABS: BASOPHILS % (AUTO) 0 % (0-1); EOSINOPHILS # (AUTO) 0.01 x10^3/uL (0-0.4); EOSINOPHILS % (AUTO) 1 % (1-7); LYMPHOCYTES # (AUTO) 0.09 x10^3/uL (1-3.4); LYMPHOCYTES % (AUTO) 6 % (22-44); MD SCAN; MONOCYTES # (AUTO) 0.49 x10^3/uL (0.2-0.8); MONOCYTES % (AUTO) 34 % (2-9); NEUTROPHILS # (AUTO) 0.86 x10^3/uL (1.8-6.8); NEUTROPHILS % (AUTO) 59 % (42-75)
[2019-10-05 07:56] VITALS: BP 154/88
[2019-10-05] MEDS: INSULIN LISPRO 100 UNITS/ML, PEN SQ-INSULIN SCH ×4 (08:15→20:02)
[2019-10-05] MEDS: SENNA/DOCUSATE TABLET PO SCH (08:16)
[2019-10-05] MEDS: AMLODIPINE 5 MG TABLET PO SCH (08:16)
[2019-10-05] MEDS: VALGANCICLOVIR 450MG TABLET PO SCH ×2 (08:16→20:00)
[2019-10-05] MEDS: SODIUM BICARBONATE 650 MG TABLET PO SCH ×3 (08:16→20:00)
[2019-10-05] MEDS: ALLOPURINOL 300 MG TABLET PO SCH (08:17)
[2019-10-05] MEDS: SODIUM CHLORIDE FLUSH 10ML SYR IVF SCH ×2 (08:17→19:59)
[2019-10-05] MEDS: APIXABAN 5 MG TABLET PO SCH ×2 (08:17→20:00)
[2019-10-05] MEDS: EVEROLIMUS HOMEMEDPO SCH ×2 (08:18→19:59)
[2019-10-05] MEDS: SODIUM CHLORIDE 0.9% 1,000 ML IV SCH (08:18)
[2019-10-05] MEDS: CARVEDILOL 12.5 MG TABLET PO SCH ×2 (08:18→20:01)
[2019-10-05] MEDS ORDERED: TBO-FILGRASTIM 300 MCG/0.5 ML SQ SCH ×2 (09:00→10:30)
[2019-10-05] MEDS: TACROLIMUS 1 MG CAPSULE PO SCH (09:00)
[2019-10-05] MEDS ORDERED: TACROLIMUS 1 MG CAPSULE PO SCH (09:00)
[2019-10-05] MEDS: SODIUM BICARBONATE 8.4% 75 MEQ in SODIUM CHLORIDE 0.45% 1,000 ML IV SCH ×2 (10:06→21:50)
[2019-10-05] MEDS: CEFEPIME 1 GM in DEXTROSE 5% 50 ML IV SCH ×2 (10:50→23:00)
[2019-10-05] MEDS: TBO-FILGRASTIM 300 MCG/0.5 ML SQ SCH (10:51)
[2019-10-05 12:14] VITALS: BP 142/85
[2019-10-05 20:15] VITALS: BP 157/90
[2019-10-06] VITALS (7 sets, daily range): BP systolic 137–179; BP diastolic 69–95
[2019-10-06 06:25] LABS: MEAN CORPUSCULAR HEMOGLOBIN 29.1 pg (27.5-34.5); MEAN CORPUSCULAR HGB CONC 31.8 g/dL (33.2-36.2); MEAN CORPUSCULAR VOLUME 91.3 fL (81-97); PLATELET COUNT 73 x10^3/uL (130-400); RED BLOOD COUNT 4.64 x10^6/uL (4.38-5.82); RED CELL DISTRIBUTION WIDTH 17.1 % (9.4-14.8)
[2019-10-06 06:26] LABS: ANION GAP 11 mmol/L (5-15); CALCIUM 9.2 mg/dL (8.5-10.1); CHLORIDE 109 mmol/L (98-107); CREATININE 1.23 mg/dL (0.7-1.3)
[2019-10-06] MEDS: INSULIN LISPRO 100 UNITS/ML, PEN SQ-INSULIN SCH ×4 (07:00→20:58)
[2019-10-06 07:23] LABS: BASOPHILS % (AUTO) 0 % (0-1); EOSINOPHILS # (AUTO) 0.11 x10^3/uL (0-0.4); EOSINOPHILS % (AUTO) 1 % (1-7); LYMPHOCYTES # (AUTO) 0.16 x10^3/uL (1-3.4); LYMPHOCYTES % (AUTO) 1 % (22-44); MD SCAN; MONOCYTES # (AUTO) 0.55 x10^3/uL (0.2-0.8); MONOCYTES % (AUTO) 4 % (2-9); NEUTROPHILS # (AUTO) 11.78 x10^3/uL (1.8-6.8); NEUTROPHILS % (AUTO) 94 % (42-75)
[2019-10-06] MEDS: DAPTOMYCIN 600 MG in SODIUM CHLORIDE 0.9% 100 ML IV SCH (08:32)
[2019-10-06] MEDS: TBO-FILGRASTIM 300 MCG/0.5 ML SQ SCH (08:32)
[2019-10-06] MEDS: SODIUM BICARBONATE 8.4% 75 MEQ in SODIUM CHLORIDE 0.45% 1,000 ML IV SCH (08:32)
[2019-10-06] MEDS: ALLOPURINOL 300 MG TABLET PO SCH (08:33)
[2019-10-06] MEDS: SENNA/DOCUSATE TABLET PO SCH (08:33)
[2019-10-06] MEDS: AMLODIPINE 5 MG TABLET PO SCH (08:34)
[2019-10-06] MEDS: SODIUM BICARBONATE 650 MG TABLET PO SCH ×3 (08:34→20:56)
[2019-10-06] MEDS: EVEROLIMUS HOMEMEDPO SCH ×2 (08:34→20:59)
[2019-10-06] MEDS: VALGANCICLOVIR 450MG TABLET PO SCH ×2 (08:34→20:56)
[2019-10-06] MEDS: CARVEDILOL 12.5 MG TABLET PO SCH ×2 (08:34→20:56)
[2019-10-06] MEDS: TACROLIMUS 1 MG CAPSULE PO SCH (08:35)
[2019-10-06] MEDS: SODIUM CHLORIDE FLUSH 10ML SYR IVF SCH ×2 (08:36→21:10)
[2019-10-06] MEDS: APIXABAN 5 MG TABLET PO SCH ×2 (08:42→20:56)
[2019-10-06 08:49] LABS: MEAN CORPUSCULAR HEMOGLOBIN 29.7 pg (27.5-34.5); MEAN CORPUSCULAR HGB CONC 32.3 g/dL (33.2-36.2); MEAN CORPUSCULAR VOLUME 91.8 fL (81-97); RED BLOOD COUNT 4.61 x10^6/uL (4.38-5.82); RED CELL DISTRIBUTION WIDTH 17.2 % (9.4-14.8)
[2019-10-06 08:54] LABS: BASOPHILS % (AUTO) 0 % (0-1); EOSINOPHILS # (AUTO) 0.01 x10^3/uL (0-0.4); EOSINOPHILS % (AUTO) 0 % (1-7); LYMPHOCYTES % (AUTO) 1 % (22-44); MD SCAN; MONOCYTES # (AUTO) 0.04 x10^3/uL (0.2-0.8); MONOCYTES % (AUTO) 0 % (2-9); NEUTROPHILS # (AUTO) 12.21 x10^3/uL (1.8-6.8); NEUTROPHILS % (AUTO) 99 % (42-75); PLATELET COUNT 93 x10^3/uL (130-400)
[2019-10-06 08:55] LABS: MEAN PLATELET VOLUME 8.3 fL (7.4-10.4)
[2019-10-06 10:44] LABS: TROPONIN I < 0.015 ng/mL (0.000-0.045)
[2019-10-06 16:48] LABS: TROPONIN I 0.016 ng/mL (0.000-0.045)
[2019-10-06] MEDS: INSULIN GLARGINE 100 UNITS/ML, PEN SQ-INSULIN SCH (20:58)
[2019-10-07 00:59] VITALS: BP 139/80
[2019-10-07 06:08] LABS: ALBUMIN 2.3 g/dL (3.4-5.0); ANION GAP 9 mmol/L (5-15); CHLORIDE 108 mmol/L (98-107)
[2019-10-07 06:12] LABS: CREATINE KINASE, TOTAL 53 U/L (39-308); CREATININE 1.27 mg/dL (0.7-1.3)
[2019-10-07 06:37] LABS: MEAN CORPUSCULAR HEMOGLOBIN 29.4 pg (27.5-34.5); MEAN CORPUSCULAR HGB CONC 31.8 g/dL (33.2-36.2); MEAN CORPUSCULAR VOLUME 92.5 fL (81-97); MEAN PLATELET VOLUME 8.2 fL (7.4-10.4); PLATELET COUNT 85 x10^3/uL (130-400); RED BLOOD COUNT 4.61 x10^6/uL (4.38-5.82); RED CELL DISTRIBUTION WIDTH 16.9 % (9.4-14.8)
[2019-10-07 06:44] VITALS: BP 144/92
[2019-10-07] MEDS: INSULIN LISPRO 100 UNITS/ML, PEN SQ-INSULIN SCH ×4 (07:00→20:51)
[2019-10-07 07:46] LABS: MD YES
[2019-10-07 07:48] LABS: BAND#(MANUAL) 1.37 x10^3/uL; BANDS%(MANUAL) 8 % (0-7); MONOS#(MANUAL) 0.86 x10^3/uL (0.3-2.7); MONOS% (MANUAL) 5 % (2-9)
[2019-10-07 07:49] LABS: LYMPH#(MANUAL) 0.34 x10^3/uL (1-3.4); LYMPHS% (MANUAL) 2 % (22-44); SEG#(MANUAL) 14.54 x10^3/uL (1.8-6.8); SEGS% (MANUAL) 85 % (42-75)
[2019-10-07 07:50] LABS: <PLATELET ESTIMATE> DECREASED; ANISOCYTOSIS 1+
[2019-10-07 07:51] LABS: LARGE PLATELETS 1+
[2019-10-07] MEDS: SENNA/DOCUSATE TABLET PO SCH (09:00)
[2019-10-07] MEDS: EVEROLIMUS HOMEMEDPO SCH ×2 (09:00→20:52)
[2019-10-07] MEDS: SODIUM CHLORIDE FLUSH 10ML SYR IVF SCH ×2 (09:00→20:57)
[2019-10-07] MEDS: DAPTOMYCIN 600 MG in SODIUM CHLORIDE 0.9% 100 ML IV SCH (09:17)
[2019-10-07] MEDS: CARVEDILOL 12.5 MG TABLET PO SCH ×2 (09:21→20:50)
[2019-10-07] MEDS: SODIUM BICARBONATE 650 MG TABLET PO SCH ×3 (09:21→20:50)
[2019-10-07] MEDS: APIXABAN 5 MG TABLET PO SCH ×2 (09:21→20:49)
[2019-10-07] MEDS: ALLOPURINOL 300 MG TABLET PO SCH (09:21)
[2019-10-07] MEDS: VALGANCICLOVIR 450MG TABLET PO SCH ×2 (09:22→20:49)
[2019-10-07] MEDS: AMLODIPINE 5 MG TABLET PO SCH (09:22)
[2019-10-07] MEDS ORDERED: TACROLIMUS 1 MG CAPSULE PO SCH ×3 (09:32→12:30)
[2019-10-07] MEDS ORDERED: [UNRECOGNIZED DRUG - REMARK] MC SCH (12:30)
[2019-10-07 13:03] VITALS: BP 132/82
[2019-10-07] MEDS: CEFAZOLIN PMX 2GM/50ML 50 ML IVPB SCH (13:35)
[2019-10-07 19:07] VITALS: BP 153/91
[2019-10-07 20:41] VITALS: BP 124/79
[2019-10-07] MEDS: INSULIN GLARGINE 100 UNITS/ML, PEN SQ-INSULIN SCH (20:50)
[2019-10-07] MEDS: TACROLIMUS HOMEMEDPO SCH (20:51)
[2019-10-08 00:30] VITALS: BP 157/81
[2019-10-08 06:34] LABS: ALBUMIN 2.6 g/dL (3.4-5.0); ANION GAP 6 mmol/L (5-15); CALCIUM 9.1 mg/dL (8.5-10.1); CHLORIDE 107 mmol/L (98-107); CREATININE 1.45 mg/dL (0.7-1.3)
[2019-10-08 06:35] LABS: MEAN CORPUSCULAR HEMOGLOBIN 28.9 pg (27.5-34.5); MEAN CORPUSCULAR HGB CONC 31.8 g/dL (33.2-36.2); MEAN CORPUSCULAR VOLUME 90.9 fL (81-97); MEAN PLATELET VOLUME 8.5 fL (7.4-10.4); PLATELET COUNT 90 x10^3/uL (130-400); RED BLOOD COUNT 4.86 x10^6/uL (4.38-5.82); RED CELL DISTRIBUTION WIDTH 17.1 % (9.4-14.8)
[2019-10-08 07:27] LABS: MD YES
[2019-10-08 07:30] LABS: <PLATELET ESTIMATE> DECREASED; <PLT MORPHOLOGY> NORMAL PLT MORPH; ANISOCYTOSIS 1+; BAND#(MANUAL) 0.22 x10^3/uL; BANDS%(MANUAL) 4 % (0-7); BASOS#(MANUAL) 0.06 x10^3/uL (0-0.1); BASOS% (MANUAL) 1 % (0-1); LYMPH#(MANUAL) 0.22 x10^3/uL (1-3.4); LYMPHS% (MANUAL) 4 % (22-44); MONOS#(MANUAL) 0.33 x10^3/uL (0.3-2.7); MONOS% (MANUAL) 6 % (2-9); SEG#(MANUAL) 4.68 x10^3/uL (1.8-6.8); SEGS% (MANUAL) 85 % (42-75)
[2019-10-08 08:01] VITALS: BP 144/94
[2019-10-08] MEDS: INSULIN LISPRO 100 UNITS/ML, PEN SQ-INSULIN SCH ×4 (08:21→21:55)
[2019-10-08] MEDS: AMLODIPINE 5 MG TABLET PO SCH (08:21)
[2019-10-08] MEDS: SENNA/DOCUSATE TABLET PO SCH (08:22)
[2019-10-08] MEDS: SODIUM BICARBONATE 650 MG TABLET PO SCH ×3 (08:22→21:47)
[2019-10-08] MEDS: APIXABAN 5 MG TABLET PO SCH ×2 (08:22→21:47)
[2019-10-08] MEDS: ALLOPURINOL 300 MG TABLET PO SCH (08:22)
[2019-10-08] MEDS: VALGANCICLOVIR 450MG TABLET PO SCH ×2 (08:22→21:47)
[2019-10-08] MEDS: CARVEDILOL 12.5 MG TABLET PO SCH ×2 (08:22→21:47)
[2019-10-08] MEDS: SODIUM CHLORIDE FLUSH 10ML SYR IVF SCH ×2 (08:23→21:00)
[2019-10-08] MEDS: EVEROLIMUS HOMEMEDPO SCH ×2 (08:27→21:00)
[2019-10-08] MEDS: CEFAZOLIN PMX 2GM/50ML 50 ML IVPB SCH ×2 (12:47→21:52)
[2019-10-08 13:09] VITALS: BP 133/81
[2019-10-08 19:44] VITALS: BP 152/87
[2019-10-08] MEDS: TACROLIMUS HOMEMEDPO SCH (21:00)
[2019-10-08] MEDS: INSULIN GLARGINE 100 UNITS/ML, PEN SQ-INSULIN SCH (21:54)
[2019-10-09 00:52] VITALS: BP 154/88
[2019-10-09] MEDS: CEFAZOLIN PMX 2GM/50ML 50 ML IVPB SCH ×3 (05:38→20:14)
[2019-10-09 05:54] LABS: ALBUMIN 2.3 g/dL (3.4-5.0); ANION GAP 8 mmol/L (5-15); CHLORIDE 107 mmol/L (98-107); CREATININE 1.15 mg/dL (0.7-1.3)
[2019-10-09 06:03] LABS: MEAN CORPUSCULAR HEMOGLOBIN 29.5 pg (27.5-34.5); MEAN CORPUSCULAR HGB CONC 32.5 g/dL (33.2-36.2); MEAN CORPUSCULAR VOLUME 90.9 fL (81-97); MEAN PLATELET VOLUME 8.1 fL (7.4-10.4); PLATELET COUNT 81 x10^3/uL (130-400); RED CELL DISTRIBUTION WIDTH 16.8 % (9.4-14.8)
[2019-10-09 06:08] LABS: MD YES
[2019-10-09 06:13] LABS: <PLATELET ESTIMATE> DECREASED; <PLT MORPHOLOGY> NORMAL PLT MORPH; ANISOCYTOSIS 1+; BAND#(MANUAL) 0.02 x10^3/uL; BANDS%(MANUAL) 1 % (0-7); EOS#(MANUAL) 0.02 x10^3/uL (0.0-0.4); EOS% (MANUAL) 1 % (1-7); LYMPH#(MANUAL) 0.17 x10^3/uL (1-3.4); LYMPHS% (MANUAL) 9 % (22-44); MONOS#(MANUAL) 0.36 x10^3/uL (0.3-2.7); MONOS% (MANUAL) 19 % (2-9); SEG#(MANUAL) 1.33 x10^3/uL (1.8-6.8); SEGS% (MANUAL) 70 % (42-75)
[2019-10-09] MEDS: INSULIN LISPRO 100 UNITS/ML, PEN SQ-INSULIN SCH ×4 (07:00→20:15)
[2019-10-09 07:14] VITALS: BP 143/99
[2019-10-09] MEDS: SODIUM CHLORIDE FLUSH 10ML SYR IVF SCH ×2 (08:44→20:19)
[2019-10-09] MEDS: AMLODIPINE 5 MG TABLET PO SCH (08:44)
[2019-10-09] MEDS: VALGANCICLOVIR 450MG TABLET PO SCH ×2 (08:44→20:17)
[2019-10-09] MEDS: SENNA/DOCUSATE TABLET PO SCH (08:44)
[2019-10-09] MEDS: ALLOPURINOL 300 MG TABLET PO SCH (08:45)
[2019-10-09] MEDS: CARVEDILOL 12.5 MG TABLET PO SCH ×2 (08:45→20:17)
[2019-10-09] MEDS: SODIUM BICARBONATE 650 MG TABLET PO SCH ×3 (08:45→20:16)
[2019-10-09] MEDS: APIXABAN 5 MG TABLET PO SCH ×2 (08:48→20:16)
[2019-10-09] MEDS: EVEROLIMUS HOMEMEDPO SCH ×2 (09:00→20:18)
[2019-10-09] MEDS ORDERED: TBO-FILGRASTIM 300 MCG/0.5 ML SQ ONE (11:00)
[2019-10-09 12:18] VITALS: BP 148/80
[2019-10-09] MEDS ORDERED: LIDOCAINE 1%, 20ML ONE (16:37)
[2019-10-09] MEDS ORDERED: FENTANYL PF 100 MCG/2ML ONE (16:52)
[2019-10-09 19:49] VITALS: BP 116/68
[2019-10-09] MEDS: INSULIN GLARGINE 100 UNITS/ML, PEN SQ-INSULIN SCH (20:15)
[2019-10-09] MEDS: TACROLIMUS HOMEMEDPO SCH (20:18)
[2019-10-10 00:50] VITALS: BP 122/74
[2019-10-10] MEDS: ACETAMINOPHEN 325 MG TABLET PO PRN (02:49)
[2019-10-10 02:53] VITALS: BP 147/84
[2019-10-10] MEDS: CEFAZOLIN PMX 2GM/50ML 50 ML IVPB SCH (05:05)
[2019-10-10 06:13] LABS: CHLORIDE 110 mmol/L (98-107)
[2019-10-10 06:25] LABS: ALANINE AMINOTRANSFERASE 29 U/L (12-78); ALBUMIN 2.3 g/dL (3.4-5.0); ALKALINE PHOSPHATASE 143 U/L (45-117); ANION GAP 8 mmol/L (5-15); BILIRUBIN,TOTAL 0.2 mg/dL (0.2-1.0); CREATININE 1.21 mg/dL (0.7-1.3); TOTAL PROTEIN 8.5 g/dL (6.4-8.2)
[2019-10-10 06:56] VITALS: BP 125/85
[2019-10-10 06:59] LABS: MD YES; MEAN CORPUSCULAR HEMOGLOBIN 28.7 pg (27.5-34.5); MEAN CORPUSCULAR HGB CONC 31.7 g/dL (33.2-36.2); MEAN CORPUSCULAR VOLUME 90.7 fL (81-97); MEAN PLATELET VOLUME 8.4 fL (7.4-10.4); PLATELET COUNT 94 x10^3/uL (130-400); RED BLOOD COUNT 4.38 x10^6/uL (4.38-5.82); RED CELL DISTRIBUTION WIDTH 16.6 % (9.4-14.8)
[2019-10-10 07:00] LABS: <PLATELET ESTIMATE> DECREASED; <PLT MORPHOLOGY> NORMAL PLT MORPH; ANISOCYTOSIS 1+; BAND#(MANUAL) 0.68 x10^3/uL; BANDS%(MANUAL) 6 % (0-7); LYMPH#(MANUAL) 0.34 x10^3/uL (1-3.4); LYMPHS% (MANUAL) 3 % (22-44); MONOS#(MANUAL) 0.57 x10^3/uL (0.3-2.7); MONOS% (MANUAL) 5 % (2-9); SEG#(MANUAL) 9.72 x10^3/uL (1.8-6.8); SEGS% (MANUAL) 86 % (42-75)
[2019-10-10] MEDS: INSULIN LISPRO 100 UNITS/ML, PEN SQ-INSULIN SCH ×2 (07:00→11:14)
[2019-10-10 07:35] LABS: HCT (SEDRATE) 39.7 % (39.2-51.8)
[2019-10-10] MEDS: VALGANCICLOVIR 450MG TABLET PO SCH (07:59)
[2019-10-10] MEDS: SODIUM BICARBONATE 650 MG TABLET PO SCH (08:00)
[2019-10-10] MEDS: CARVEDILOL 12.5 MG TABLET PO SCH (08:00)
[2019-10-10] MEDS: ALLOPURINOL 300 MG TABLET PO SCH (08:01)
[2019-10-10] MEDS: APIXABAN 5 MG TABLET PO SCH (08:01)
[2019-10-10] MEDS: AMLODIPINE 5 MG TABLET PO SCH (08:01)
[2019-10-10] MEDS: SENNA/DOCUSATE TABLET PO SCH (08:01)
[2019-10-10] MEDS: EVEROLIMUS HOMEMEDPO SCH (08:05)
[2019-10-10] MEDS: SODIUM CHLORIDE FLUSH 10ML SYR IVF SCH (08:51)
[2019-10-10] MEDS ORDERED: DAPTOMYCIN 600 MG in SODIUM CHLORIDE 0.9% 100 ML IVPB SCH (11:00)
[2019-10-10] MEDS ORDERED: INSU100I13 SQ-INSULIN (11:01)
[2019-10-10] MEDS ORDERED: SODI650T PO (11:01)
[2019-10-10 12:02] VITALS: BP 146/86
== END 2019-10-10 14:45 | disposition home or self-care (01) | DRG 699 ==
LOC: ED 04:24 → EDIP 04:33 → 3N 05:40 → 4WST 07:29 → DCLOUNGE 10-10 14:34
PROVIDERS: ADMIT Family Medicine; ATTEND Family Medicine
PROC: 0JH63XZ Insertion of Tunneled Vascular Access Device into Chest Subcutaneous Tissue and Fascia, Percutaneous Approach (ICD-10-PCS; principal; 2019-10-09)
PROC: 02HV33Z Insertion of Infusion Device into Superior Vena Cava, Percutaneous Approach (ICD-10-PCS; 2019-10-09)
PROC: B5181ZA Fluoroscopy of Superior Vena Cava using Low Osmolar Contrast, Guidance (ICD-10-PCS; 2019-10-09)
PROC: B548ZZA Ultrasonography of Superior Vena Cava, Guidance (ICD-10-PCS; 2019-10-09)
DX: T86.13 Kidney transplant infection (principal); B25.9 Cytomegaloviral disease, unspecified; E87.1 Hypo-osmolality and hyponatremia; E87.2 Acidosis; N17.9 Acute kidney failure, unspecified; E46 Unspecified protein-calorie malnutrition; N12 Tubulo-interstitial nephritis, not specified as acute or chronic; T86.19 Other complication of kidney transplant; D70.9 Neutropenia, unspecified; E11.22 Type 2 diabetes mellitus with diabetic chronic kidney disease; N18.3 Chronic kidney disease, stage 3 (moderate); E11.65 Type 2 diabetes mellitus with hyperglycemia; E78.00 Pure hypercholesterolemia, unspecified; E78.5 Hyperlipidemia, unspecified; I12.9 Hypertensive chronic kidney disease with stage 1 through stage 4 chronic kidney disease, or unspecified chronic kidney disease; B95.8 Unspecified staphylococcus as the cause of diseases classified elsewhere; I48.0 Paroxysmal atrial fibrillation; M10.9 Gout, unspecified; Y83.0 Surgical operation with transplant of whole organ as the cause of abnormal reaction of the patient, or of later complication, without mention of misadventure at the time of the procedure; Z79.01 Long term (current) use of anticoagulants; Z79.4 Long term (current) use of insulin; Z79.899 Other long term (current) drug therapy; Z80.7 Family history of other malignant neoplasms of lymphoid, hematopoietic and related tissues; Z87.442 Personal history of urinary calculi; Z83.3 Family history of diabetes mellitus; Z90.49 Acquired absence of other specified parts of digestive tract; Z99.2 Dependence on renal dialysis; Z88.5 Allergy status to narcotic agent; Z68.29 Body mass index [BMI] 29.0-29.9, adult
CPT/HCPCS: 36415; 77001; 87910; 99285; J3490; 36558; 71045; 76776; 76937; 80048; 80053; 81001; 82040; 82550; 82962; 83036; 83735; 84100; 84484; 85025; 85651; 86140; 86361; 87040; 87077; 87086; 87186; 87497; 93005; 93306; G0378; J0690; J0692; J0696; J0878; J3010; J3370; J7507; C1751; J1447; J1815; J7030; J7050; J7512

== ENCOUNTER 2019-11-09 14:09 | Inpatient (IN) | payer OTHER, MEDICARE ==
[~2019-11-09] VITALS: Ht 188 cm; Wt 113.5 kg
[~2019-11-09 14:09] MED LIST changes: +AMLO-150 PO; +EVER1TAB PO; +FILG300S2 SC; +INSU100I13 SQ-INSULIN; +SEMA0.25 SC; +TACR0.75 PO; +TACR1TAB PO
--- NOTE | 2019-11-09 15:20 | NUR ---
BREAK RN: LAB AT BEDSIDE FOR DRAW. PT DENIES NEEDS. CALL LIGHT IN REACH.
[2019-11-09] MEDS ORDERED: SODIUM CHLORIDE FLUSH 10ML SYR IVF ONE (15:30)
[2019-11-09 15:58] LABS: ALANINE AMINOTRANSFERASE 46 U/L (12-78); ALBUMIN 2.5 g/dL (3.4-5.0); ANION GAP 8 mmol/L (5-15); CALCIUM 8.8 mg/dL (8.5-10.1); CHLORIDE 107 mmol/L (98-107); CREATININE 4.41 mg/dL (0.7-1.3)
[2019-11-09 16:01] LABS: ALKALINE PHOSPHATASE 97 U/L (45-117); BILIRUBIN,TOTAL 0.4 mg/dL (0.2-1.0); TOTAL PROTEIN 9.2 g/dL (6.4-8.2)
[2019-11-09 16:08] LABS: MEAN CORPUSCULAR HEMOGLOBIN 29.4 pg (27.5-34.5); MEAN CORPUSCULAR HGB CONC 32.5 g/dL (33.2-36.2); MEAN CORPUSCULAR VOLUME 90.5 fL (81-97); RED BLOOD COUNT 4.41 x10^6/uL (4.38-5.82); RED CELL DISTRIBUTION WIDTH 16.9 % (9.4-14.8)
[2019-11-09 16:25] LABS: MD YES
[2019-11-09 16:28] LABS: MEAN PLATELET VOLUME 8.5 fL (7.4-10.4)
[2019-11-09 16:51] LABS: ANISOCYTOSIS 1+; BAND#(MANUAL) 0.05 x10^3/uL; BANDS%(MANUAL) 4 % (0-7); BASOS#(MANUAL) 0.02 x10^3/uL (0-0.1); BASOS% (MANUAL) 2 % (0-1); EOS#(MANUAL) 0.02 x10^3/uL (0.0-0.4); EOS% (MANUAL) 2 % (1-7); LYMPH#(MANUAL) 0.23 x10^3/uL (1-3.4); LYMPHS% (MANUAL) 19 % (22-44); MONOS#(MANUAL) 0.06 x10^3/uL (0.3-2.7); MONOS% (MANUAL) 5 % (2-9); SEG#(MANUAL) 0.82 x10^3/uL (1.8-6.8); SEGS% (MANUAL) 68 % (42-75)
[2019-11-09 16:52] LABS: <PLATELET ESTIMATE> DECREASED; <PLT MORPHOLOGY> NORMAL PLT MORPH
[2019-11-09 16:55] LABS: MICROSCOPIC INDICATED
[2019-11-09 16:55] LABS: PLATELET COUNT 49 x10^3/uL (130-400)
[2019-11-09] MEDS ORDERED: SODIUM CHLORIDE FLUSH 10ML SYR IVF PRN (18:30)
--- NOTE | 2019-11-09 19:04 | NUR ---
TP RN: NO COVID SWAB PER DR SMITH
--- NOTE | 2019-11-09 19:05 | NUR ---
PER KAREN RELAY TO [facility] TO WITHOLD DAPTOMYCIN UNTIL INFECTIOUS DISEASE SEES PT TOMORROW.
[2019-11-09] MEDS ORDERED: LOPERAMIDE 2 MG CAPSULE PO PRN (19:30)
[2019-11-09] MEDS ORDERED: SEMAGLUTIDE 0.5 MG SC SCH (19:30)
[2019-11-09] MEDS ORDERED: BISACODYL 10 MG SUPP PR PRN (19:30)
[2019-11-09] MEDS ORDERED: hydrALAzine 20 MG/ML, 1ML IVPush PRN (19:30)
[2019-11-09] MEDS ORDERED: DEXTROSE 4 GM TAB.CHEW PO PRN (19:30)
[2019-11-09] MEDS ORDERED: GLUCAGON 1 MG IM PRN (19:30)
[2019-11-09] MEDS ORDERED: DEXTROSE 50%, 50ML SYRINGE IVPush PRN (19:30)
[2019-11-09] MEDS ORDERED: ACETAMINOPHEN 325 MG TABLET PO PRN (19:30)
[2019-11-09] MEDS ORDERED: ERGOCALCIFEROL 50,000 UNIT CAPSULE PO SCH (19:30)
[2019-11-09] MEDS: EVEROLIMUS 1 MG HOMEMEDPO SCH (22:04)
[2019-11-09] MEDS: SODIUM BICARBONATE 650 MG TABLET PO SCH (22:05)
[2019-11-09] MEDS: CARVEDILOL 12.5 MG TABLET PO SCH (22:05)
[2019-11-09] MEDS: SODIUM CHLORIDE FLUSH 10ML SYR IVF SCH (22:06)
[2019-11-09] MEDS: SODIUM CHLORIDE 0.9% 1,000 ML IV SCH (22:06)
[2019-11-09] MEDS: INSULIN GLARGINE 100 UNITS/ML, PEN SQ-INSULIN SCH (22:12)
[2019-11-09] MEDS: INSULIN LISPRO 100 UNITS/ML, PEN SQ-INSULIN SCH (22:12)
[2019-11-10] MEDS ORDERED: GUAIFENESIN ER 600 MG TABLET PO PRN (01:00)
[2019-11-10 01:10] VITALS: BP 147/82
[2019-11-10] MEDS: SODIUM CHLORIDE 0.9% 1,000 ML IV SCH ×2 (04:28→11:25)
[2019-11-10 06:09] LABS: MEAN CORPUSCULAR HEMOGLOBIN 28.9 pg (27.5-34.5); MEAN CORPUSCULAR HGB CONC 31.5 g/dL (33.2-36.2); MEAN CORPUSCULAR VOLUME 91.6 fL (81-97); MEAN PLATELET VOLUME 7.7 fL (7.4-10.4); RED BLOOD COUNT 3.87 x10^6/uL (4.38-5.82); RED CELL DISTRIBUTION WIDTH 17.5 % (9.4-14.8)
[2019-11-10 06:15] LABS: ANION GAP 8 mmol/L (5-15); CALCIUM 8.2 mg/dL (8.5-10.1); CHLORIDE 110 mmol/L (98-107); PLATELET COUNT 47 x10^3/uL (130-400)
[2019-11-10 06:17] LABS: CREATININE 4.39 mg/dL (0.7-1.3)
[2019-11-10 06:27] VITALS: BP 159/92
[2019-11-10 06:27] LABS: MD YES
[2019-11-10 06:36] LABS: <PLATELET ESTIMATE> DECREASED; <PLT MORPHOLOGY> NORMAL PLT MORPH; ANISOCYTOSIS 1+; BAND#(MANUAL) 0.06 x10^3/uL; BANDS%(MANUAL) 6 % (0-7); EOS#(MANUAL) 0.04 x10^3/uL (0.0-0.4); EOS% (MANUAL) 4 % (1-7); LYMPH#(MANUAL) 0.06 x10^3/uL (1-3.4); LYMPHS% (MANUAL) 6 % (22-44); METAMYELOCYTES# (MANUAL) 0.01 x10^3/uL (0-0); METAMYELOCYTES% (MANUAL) 1 % (0-1); MONOS#(MANUAL) 0.08 x10^3/uL (0.3-2.7); MONOS% (MANUAL) 8 % (2-9); SEG#(MANUAL) 0.75 x10^3/uL (1.8-6.8); SEGS% (MANUAL) 75 % (42-75)
[2019-11-10] MEDS: INSULIN LISPRO 100 UNITS/ML, PEN SQ-INSULIN SCH ×4 (07:00→20:42)
[2019-11-10] MEDS: EVEROLIMUS 1 MG HOMEMEDPO SCH ×2 (09:00→20:42)
[2019-11-10] MEDS ORDERED: TACROLIMUS 1 MG HOMEMEDPO SCH (09:00)
[2019-11-10] MEDS ORDERED: TACROLIMUS HOMEMEDPO SCH (09:00)
[2019-11-10] MEDS ORDERED: AMLODIPINE 5 MG TABLET PO SCH (09:00)
[2019-11-10] MEDS: SODIUM BICARBONATE 650 MG TABLET PO SCH ×3 (09:04→20:40)
[2019-11-10] MEDS: CARVEDILOL 12.5 MG TABLET PO SCH ×2 (09:05→20:40)
[2019-11-10] MEDS: SODIUM CHLORIDE FLUSH 10ML SYR IVF SCH ×2 (09:06→20:42)
[2019-11-10] MEDS: HEPARIN 5,000 UNITS/ML, 1ML SQ SCH ×2 (10:30→22:30)
[2019-11-10] MEDS ORDERED: TBO-FILGRASTIM 300 MCG/0.5 ML SQ ONE (12:30)
[2019-11-10 12:42] VITALS: BP 166/90
[2019-11-10 13:17] LABS: CREATININE,URINE RANDOM 99.1 mg/dL
[2019-11-10] MEDS ORDERED: CEFTAROLINE 300 MG in SODIUM CHLORIDE 0.9% 100 ML IV SCH (16:00)
[2019-11-10 18:50] VITALS: BP 170/81
[2019-11-10] MEDS ORDERED: SODIUM CHLORIDE 0.9% 1,000 ML IV SCH (19:30)
[2019-11-10] MEDS: INSULIN GLARGINE 100 UNITS/ML, PEN SQ-INSULIN SCH (20:50)
[2019-11-11 00:20] VITALS: BP 138/83
== END 2019-11-11 01:45 | disposition short-term general hospital (02) | DRG 698 ==
LOC: ED 17:33 → EDIP 18:03 → 3N 20:24
PROVIDERS: ADMIT Family Medicine; ATTEND Family Medicine
DX: T86.11 Kidney transplant rejection (principal); N18.6 End stage renal disease; E87.1 Hypo-osmolality and hyponatremia; I12.0 Hypertensive chronic kidney disease with stage 5 chronic kidney disease or end stage renal disease; N17.9 Acute kidney failure, unspecified; N39.0 Urinary tract infection, site not specified; R78.81 Bacteremia; B25.9 Cytomegaloviral disease, unspecified; B95.7 Other staphylococcus as the cause of diseases classified elsewhere; D63.8 Anemia in other chronic diseases classified elsewhere; D69.6 Thrombocytopenia, unspecified; D72.810 Lymphocytopenia; E11.22 Type 2 diabetes mellitus with diabetic chronic kidney disease; I48.0 Paroxysmal atrial fibrillation; M10.9 Gout, unspecified; R50.81 Fever presenting with conditions classified elsewhere; E78.00 Pure hypercholesterolemia, unspecified; Z80.7 Family history of other malignant neoplasms of lymphoid, hematopoietic and related tissues; Z79.899 Other long term (current) drug therapy; Z83.3 Family history of diabetes mellitus; Z87.442 Personal history of urinary calculi; T86.19 Other complication of kidney transplant; Z88.5 Allergy status to narcotic agent; W18.39XA Other fall on same level, initial encounter; Y93.89 Activity, other specified; Y92.89 Other specified places as the place of occurrence of the external cause; Y99.8 Other external cause status; Y83.0 Surgical operation with transplant of whole organ as the cause of abnormal reaction of the patient, or of later complication, without mention of misadventure at the time of the procedure; Z20.828 Contact with and (suspected) exposure to other viral communicable diseases; Z79.4 Long term (current) use of insulin; Z99.2 Dependence on renal dialysis
CPT/HCPCS: 36415; 71045; 76776; 80048; 80053; 81001; 82550; 82570; 82962; 83605; 83735; 84100; 84145; 84156; 85025; 87040; 87635; 93005; G0378; J0712; J2930; J0360; J1447; J7030; J7512

== ENCOUNTER → 2020-07-04 | Outpatient (CLI) | payer OTHER, MEDICARE ==
[~2020-07-04] MED LIST changes: +AMLO-211 PO; -AMLO10TA8 PO; +ASPI-1026 PO; -ASPI-650 PO; +FLUC50TA3 PO; +FOLI0.4T5 PO; +GADOTERATE 10 MMOL/20ML SYR ONE; +SULF1TAB23 PO
== END | disposition home or self-care (01) ==
LOC: RAD 16:11
PROVIDERS: ATTEND Orthopaedic Surgery
DX: M47.812 Spondylosis without myelopathy or radiculopathy, cervical region (principal); M48.02 Spinal stenosis, cervical region; M25.78 Osteophyte, vertebrae
CPT/HCPCS: 72156; A9575

== ENCOUNTER → 2020-08-28 | Outpatient (CLI) | payer OTHER, MEDICARE ==
[~2020-08-28] MED LIST changes: -GADOTERATE 10 MMOL/20ML SYR ONE
== END | disposition home or self-care (01) ==
LOC: CFH 10:09
DX: M46.20 Osteomyelitis of vertebra, site unspecified (principal)
CPT/HCPCS: 72125

== ENCOUNTER → 2020-12-06 | Outpatient (CLI) | payer MEDICARE, OTHER ==
[2020-12-06 09:44] LABS: BASOPHILS % (AUTO) 2 % (0-1); EOSINOPHILS % (AUTO) 2 % (1-7); LYMPHOCYTES % (AUTO) 29 % (22-44); MEAN CORPUSCULAR HGB CONC 32.3 g/dL (33.2-36.2); MEAN PLATELET VOLUME 7.7 fL (7.4-10.4); MONOCYTES % (AUTO) 14 % (2-9); NEUTROPHILS % (AUTO) 54 % (42-75); PLATELET COUNT 134 x10^3/uL (130-400); RED BLOOD COUNT 5.11 x10^6/uL (4.38-5.82); RED CELL DISTRIBUTION WIDTH 19.2 % (9.4-14.8)
[2020-12-06 09:51] LABS: MICROSCOPIC INDICATED
[2020-12-06 09:52] LABS: ALANINE AMINOTRANSFERASE 38 U/L (12-78); ALBUMIN 2.4 g/dL (3.4-5.0); ANION GAP 7 mmol/L (5-15); CALCIUM 9.1 mg/dL (8.5-10.1); CHLORIDE 110 mmol/L (98-107); CREATININE 2.62 mg/dL (0.7-1.3)
[2020-12-06 09:54] LABS: ALKALINE PHOSPHATASE 109 U/L (45-117); BILIRUBIN,TOTAL 0.4 mg/dL (0.2-1.0); TOTAL PROTEIN 8.3 g/dL (6.4-8.2)
== END | disposition home or self-care (01) ==
LOC: LAB 09:10
PROVIDERS: ATTEND Nurse Practitioner Family
DX: Z94.0 Kidney transplant status (principal)
CPT/HCPCS: 36415; 80053; 80197; 81001; 83735; 84100; 85025; 87497

== ENCOUNTER → 2020-12-14 | Outpatient (CLI) | payer MEDICARE, OTHER ==
[2020-12-14 12:11] LABS: BASOPHILS % (AUTO) 1 % (0-1); EOSINOPHILS % (AUTO) 2 % (1-7); LYMPHOCYTES % (AUTO) 25 % (22-44); MEAN CORPUSCULAR HEMOGLOBIN 25.4 pg (27.5-34.5); MEAN CORPUSCULAR HGB CONC 31.6 g/dL (33.2-36.2); MEAN PLATELET VOLUME 7.5 fL (7.4-10.4); MONOCYTES % (AUTO) 14 % (2-9); NEUTROPHILS % (AUTO) 58 % (42-75); PLATELET COUNT 133 x10^3/uL (130-400); RED BLOOD COUNT 5.24 x10^6/uL (4.38-5.82); RED CELL DISTRIBUTION WIDTH 19.3 % (9.4-14.8)
[2020-12-14 12:53] LABS: CHLORIDE 109 mmol/L (98-107)
[2020-12-14 13:04] LABS: ALANINE AMINOTRANSFERASE 36 U/L (12-78); ALBUMIN 2.7 g/dL (3.4-5.0); ALKALINE PHOSPHATASE 106 U/L (45-117); ANION GAP 10 mmol/L (5-15); BILIRUBIN,TOTAL 0.4 mg/dL (0.2-1.0); CALCIUM 9.7 mg/dL (8.5-10.1); CREATININE 2.39 mg/dL (0.7-1.3)
[2020-12-17 13:07] LABS: CREATININE CLEARANCE,URINE 45.1 (70.0-140.0)
== END | disposition home or self-care (01) ==
LOC: LAB 08:00
PROVIDERS: ATTEND Family Medicine
DX: C90.00 Multiple myeloma not having achieved remission (principal)
CPT/HCPCS: 36415; 80053; 82565; 82784; 83615; 83883; 84155; 84156; 84165; 84166; 85025; 86334; 86335

== ENCOUNTER 2020-12-21 10:10 | Outpatient (CLI) | payer MEDICARE, OTHER ==
[2020-12-21 11:03] LABS: BASOPHILS % (AUTO) 1 % (0-1); EOSINOPHILS % (AUTO) 2 % (1-7); LYMPHOCYTES % (AUTO) 29 % (22-44); MEAN CORPUSCULAR HEMOGLOBIN 26.3 pg (27.5-34.5); MEAN CORPUSCULAR HGB CONC 32.7 g/dL (33.2-36.2); MEAN PLATELET VOLUME 8.1 fL (7.4-10.4); MONOCYTES % (AUTO) 15 % (2-9); NEUTROPHILS % (AUTO) 53 % (42-75); PLATELET COUNT 131 x10^3/uL (130-400); RED BLOOD COUNT 4.99 x10^6/uL (4.38-5.82)
[2020-12-21 11:04] LABS: MICROSCOPIC AUTO
[2020-12-21 11:14] LABS: ALBUMIN 2.7 g/dL (3.4-5.0); ANION GAP 6 mmol/L (5-15); CALCIUM 9.2 mg/dL (8.5-10.1); CHLORIDE 109 mmol/L (98-107)
[2020-12-21 11:17] LABS: ALANINE AMINOTRANSFERASE 41 U/L (12-78); ALKALINE PHOSPHATASE 107 U/L (45-117); BILIRUBIN,TOTAL 0.5 mg/dL (0.2-1.0); TOTAL PROTEIN 8.9 g/dL (6.4-8.2)
== END 2020-12-21 23:59 | disposition home or self-care (01) ==
LOC: LAB 10:10
PROVIDERS: ATTEND Nurse Practitioner Family
DX: R82.79 Other abnormal findings on microbiological examination of urine (principal); Z94.0 Kidney transplant status
CPT/HCPCS: 36415; 80053; 80197; 81001; 83735; 84100; 85025; 87497

== ENCOUNTER 2021-01-09 08:11 | Outpatient (CLI) | payer MEDICARE, OTHER ==
[2021-01-09 08:37] LABS: BASOPHILS % (AUTO) 1 % (0-1); EOSINOPHILS % (AUTO) 1 % (1-7); LYMPHOCYTES % (AUTO) 35 % (22-44); MEAN CORPUSCULAR HEMOGLOBIN 26.6 pg (27.5-34.5); MEAN CORPUSCULAR HGB CONC 32.8 g/dL (33.2-36.2); MEAN PLATELET VOLUME 8.3 fL (7.4-10.4); MONOCYTES % (AUTO) 16 % (2-9); NEUTROPHILS % (AUTO) 47 % (42-75); PLATELET COUNT 114 x10^3/uL (130-400); RED BLOOD COUNT 5.11 x10^6/uL (4.38-5.82); RED CELL DISTRIBUTION WIDTH 20.4 % (9.4-14.8)
[2021-01-09 08:41] LABS: MICROSCOPIC AUTO
[2021-01-09 08:46] LABS: ALANINE AMINOTRANSFERASE 42 U/L (12-78); ALBUMIN 2.8 g/dL (3.4-5.0); ANION GAP 5 mmol/L (5-15); CALCIUM 9.1 mg/dL (8.5-10.1); CHLORIDE 110 mmol/L (98-107); CREATININE 2.59 mg/dL (0.7-1.3)
[2021-01-09 08:49] LABS: ALKALINE PHOSPHATASE 113 U/L (45-117); BILIRUBIN,TOTAL 0.4 mg/dL (0.2-1.0); TOTAL PROTEIN 8.7 g/dL (6.4-8.2)
== END 2021-01-09 23:59 | disposition home or self-care (01) ==
LOC: LAB 08:11
PROVIDERS: ATTEND Nurse Practitioner Family
DX: N18.9 Chronic kidney disease, unspecified (principal); Z94.0 Kidney transplant status
CPT/HCPCS: 36415; 80053; 80197; 81001; 83735; 84100; 85025

== ENCOUNTER → 2021-01-21 | Outpatient (CLI) | payer MEDICARE, OTHER ==
[2021-01-21 08:23] LABS: MICROSCOPIC AUTO
[2021-01-21 08:33] LABS: ALBUMIN 2.8 g/dL (3.4-5.0); ANION GAP 4 mmol/L (5-15); CALCIUM 8.4 mg/dL (8.5-10.1); CHLORIDE 112 mmol/L (98-107)
[2021-01-21 08:37] LABS: ALANINE AMINOTRANSFERASE 37 U/L (12-78); ALKALINE PHOSPHATASE 102 U/L (45-117); BASOPHILS % (AUTO) 1 % (0-1); BILIRUBIN,TOTAL 0.5 mg/dL (0.2-1.0); EOSINOPHILS % (AUTO) 1 % (1-7); LYMPHOCYTES % (AUTO) 38 % (22-44); MEAN CORPUSCULAR HEMOGLOBIN 26.6 pg (27.5-34.5); MEAN CORPUSCULAR HGB CONC 32.7 g/dL (33.2-36.2); MONOCYTES % (AUTO) 16 % (2-9); NEUTROPHILS % (AUTO) 44 % (42-75); PLATELET COUNT 132 x10^3/uL (130-400); RED BLOOD COUNT 5.14 x10^6/uL (4.38-5.82); RED CELL DISTRIBUTION WIDTH 19.8 % (9.4-14.8); TOTAL PROTEIN 8.8 g/dL (6.4-8.2)
== END | disposition home or self-care (01) ==
LOC: LAB 07:38
PROVIDERS: ATTEND Nurse Practitioner Family
DX: N18.9 Chronic kidney disease, unspecified (principal); Z94.0 Kidney transplant status
CPT/HCPCS: 36415; 80053; 80197; 81001; 83735; 84100; 85025